=== PATIENT | male | born 1960 | race African-American/Black ===

== ENCOUNTER 2021-06-18 09:54 | Inpatient (IN) | payer OTHER, SELFPAY ==
[2021-06-18] VITALS (17 sets, daily range): BP systolic 154–192; BP diastolic 100–122; PULSE 89–118; RESP 18–23; TEMP 36.1–37.4; O2SAT 93–99; BMI 23.6
--- NOTE | ~2021-06-18 | MR_ITS ---
EXAMINATION: MR brain/brain stem wo/w con EXAM DATE: 06/20/2021 14:34 INDICATION: Encephalopathy, stroke versus seizure. TECHNIQUE: Magnetic resonance imaging (MRI) of the brain/brain stem obtained without contrast. Sagit antonia T1, axial diffusion, gradient echo (T2*), T1, T2, FLAIR sequences obtained. Patient was then inj ected with 15 cc intravenous Multihance contrast. Axial and coronal postcontrast T1 weighted sequence s obtained. Correlation is made to head CT from 06/18. FINDINGS: Punctate old left caudate head and thalamic lacunar infarctions. There are no areas of rest ricted diffusion to suggest acute infarction. There is no acute hemorrhage seen on the T2*, a hemosi bethany sensitive sequence. No intraparenchymal brain mass lesion. There is mild to moderate periventr icular and subcortical T2/FLAIR signal hyperintensity, nonspecific but probably related to small vess el ischemic disease (microangiopathy). There is mild prominence of the sulci and ventricles related to cerebral atrophy. There are no extra-axial collections. Flow voids are seen in the cerebral ar teries on the T2-weighted sequences consistent with their expected patency. The orbits are unremarka ble. Soft tissue is unremarkable. IMPRESSION: 1. No acute intracranial findings. 2. Chronic age related findings. 3. Old left lacunar infarctions. Reviewed, dictated and finalized at location B.
--- NOTE | ~2021-06-18 | XR_ITS ---
XR chest 1V portable DATE: 06/18/2021 10:16 INDICATION: Cerebrovascular accident TECHNIQUE: Portable AP chest on 06/13/2021 at 1012 hours COMPARISON: 05/07/2017 portable AP chest FINDINGS: Normal heart size. Is aortic ectasia and unfolding. No hilar or mediastinal enlargement. No pulmonary infiltrate or consolidation, pleural effusion or pulmonary vascular congestion or pneumoth orax. Diffuse idiopathic skeletal hyperostosis of the thoracic spine. IMPRESSION: No active cardiopulmonary disease Reviewed, dictated and finalized at location A.
--- NOTE | ~2021-06-18 | CT_ITS ---
EXAMINATION: CT brain wo con DATE: 06/18/2021 10:01 INDICATION: Altered mental status. Generalized weakness. Possible cerebrovascular accident. TECHNIQUE: Computed tomography (CT) of the head was performed without intravenous contrast. The mA wa s adjusted according to patient size. Iterative reconstruction technique was employed. Exam dose: 60 5.33 mGy-cm total exam DLP. COMPARISON: 05/07/2017 CT brain FINDINGS: There is a chronic lacunar infarct at the anterior limb of the left internal capsule. Left thalamic lacunar infarct. There is nonspecific diminished attenuation cerebral white matter, likely due to chronic small vessel ischemic changes. No intracranial mass lesion or hemorrhage, midline shift or mass effect effect. No subdural or epidural hematoma. No skull fracture or bone destruction. The mastoid air cells and included paranasal sinuses are normally developed and aerated. IMPRESSION: Chronic lacunar infarct of anterior limb of left internal capsule Lacunar infarct of left thalamus Diminished attenuation cerebral white matter, likely due to chronic small vessel ischemic changes of the cerebral white matter Dr. Biggs telephoned the report to the emergency room physician Dr. Lenz on 06/18/2021 at 1012 radha rs. Reviewed, dictated and finalized at Location A. Reviewed, dictated and finalized at location A. IMPRESSION: Chronic lacunar infarct of anterior limb of left internal capsule Lacunar infarct of left thalamus Diminished attenuation cerebral white matter, likely due to chronic small vesse l ischemic changes of the cerebral white matter Dr. Biggs telephoned the report to the emergency room physician Dr. Lenz on 06/18/2021 at 1012 hours.
--- NOTE | 2021-06-18 09:57 | ECG_ITS ---
Measurements Intervals [place] Rate: 113 P: 50 IL: 161 QRS: -15 QRSD: 81 T: 56 QT: 311 QTc: 427 Interpretive Statements SINUS TACHYCARDIA BASELINE ARTIFACT- I, II, AVR, AVL, AVF, V1 ABNORMAL ECG Electronically Signed On 06-18-2021 16:21:47 CDT by Mike Bahena D.O.
--- NOTE | 2021-06-18 10:06 | ED.NEUROSD ---
HPI - Neuro Symptoms/Deficit General Chief Complaint: Suspected CVA Stated Complaint: cva Time Seen by Provider: 06/18/21 10:04 History of Present Illness HPI Narrative: He was working at [employer] when someone notd him sit down in the middle [place] the [place]. He then had was they called seizure like activity, no specific description was given. When EMS arrived. He was oriented x2. He was able to follow commands. No focal deficits noted. History limited by mental status. Related Data Home Medications Medication Instructions Recorded Confirmed No Home Medications 06/18/21 06/18/21 Allergies Allergy/AdvReac Type Severity Reaction Status Date / Time No Known Allergies Allergy Verified 06/18/21 10:11 Review of Systems Review of Systems: ROS unobtainable: Yes unobtainable due to mental status PMFSH Social History Social History Smoking packs per day: 1 Smoking cigarettes per day: 20.0 Smoking status: Former smoker Tobacco type: cigarettes Smoking end date: 12/09/10 Alcohol intake: never Substance use: never Substance use type: does not use Gender identity (if verbalized by the patient): Male Spiritual care concerns: No Comments Medical history is uknown Exam Const: General: no acute distress and awake Nutritional Appearance: well nourished Other: orieted x2 HENMT: Head: normal to inspection Eyes: Pupils: Equal, round and reactive pupils present EOM: EOMs intact bilaterally Neck: Neck: normal visual inspection Resp: Effort & Inspection: normal respiratory effort Auscultation: clear to auscultation bilaterally Cardio: Rate: tachycardic Rhythm: regular rhythm GI: Inspection: normal to inspection GI Palp: No Tenderness to palpation present (GI) Skin: General skin exam: normal color Neuro: General: oriented to person, oriented to place, tone normal, moves all extremities, no focal motor deficits, CN's II-XI intact bilaterally and confusion Cranial nerves: Yes Other cranial nerve findings present (facial twitching) Cognition (Neuro): abnormal cognition Speech: normal speech Extrem: General: normal to inspection Course Vital Signs Vital signs: Vital Signs Pulse Rate 114 H 06/18/21 09:57 Respiratory Rate 22 H 06/18/21 09:57 Blood Pressure 191/120 H 06/18/21 09:57 Pulse Oximetry 97 06/18/21 09:57 Temperature 37.1 C 06/18/21 17:18 Pulse Rate 95 06/18/21 17:18 Respiratory Rate 20 06/18/21 17:18 Blood Pressure 154/101 H 06/18/21 17:18 Pulse Oximetry 96 06/18/21 17:18 MDM - Neuro Symptoms/Deficit MDM Narrative Medical decision making narrative: CT shows no hemorrhage. I will give aspirin and allow permissive hypertension, although not a clear cut CVA. Differential Diagnosis Differential diagnosis: Likely cerebrovascular accident, transient cerebral ischemia and other (seizure, syncope) Medical Records Attestation: I reviewed the patient's medical records. Lab Data Attestation: I reviewed the patient's lab results. Result diagrams: 06/18/21 10:14 06/18/21 10:14 Labs: Lab Results 06/18/21 06/18/21 06/18/21 Range/Units 10:03 10:14 10:14 WBC 10.1 H (4.5-10.0) K/mm3 RBC 4.66 (4.6-6.20) M/mm3 Hgb 14.5 (14.0-18.0) g/dL Hct 44.9 (42.0-52.0) % MCV 96.4 (80-100) fl MCH 31.1 (26-34) pg MCHC 32.3 (32-36) g/dl RDW 15.9 H (11.5-14.5) % Plt Count 107 L (150-375) k/mm3 MPV 10.5 H (7.4-10.4) fl Immature Gran % (Auto) 1.1 H (0-0.5) % Neut % (Auto) 77.5 H (45.5-73.1) % Lymph % (Auto) 7.8 L (18.3-44.2) % Cotton % (Auto) 11.9 H (2.6-8.5) % Eos % (Auto) 0.8 (0-4.4) % Baso % (Auto) 0.9 (0.2-1.2) % Lymph # (Auto) 0.78 L (0.9-3.2) K/mm3 Cotton # (Auto) 1.2 H (0.1-0.6) K/mm3 Eos # (Auto) 0.1 (0-0.3) K/mm3 Baso # (Auto) 0.1 (0.0-0.1) K/mm3 Abs Immat Gran (auto) 0.11 H (0.00-0.031) K/mm3 Absolute Neuts (auto) 7.8 H (1.3-6.7)
[2021-06-18 10:14] LABS: Glucose Point of Care 186 mg/dl (65-105)
[2021-06-18 10:42] LABS: Basophils Absolute Auto 0.1 K/mm3 (0.0-0.1); Basophils Percent Auto 0.9 % (0.2-1.2); Eosinophils Absolute Auto 0.1 K/mm3 (0-0.3); Eosinophils Percent Auto 0.8 % (0-4.4); Hematocrit 44.9 % (42.0-52.0); Hemoglobin 14.5 g/dL (14.0-18.0); Immature Granulocyte Absolute 0.11 K/mm3 (0.00-0.031); Immature Granulocyte Percent A 1.1 % (0-0.5); Lymphocytes Absolute Auto 0.78 K/mm3 (0.9-3.2); Lymphocytes Percent Auto 7.8 % (18.3-44.2); Mean Corpuscular HGB Conc 32.3 g/dl (32-36); Mean Corpuscular Hemoglobin 31.1 pg (26-34); Mean Corpuscular Volume 96.4 fl (80-100); Mean Platelet Volume 10.5 fl (7.4-10.4); Monocytes Absolute Auto 1.2 K/mm3 (0.1-0.6); Monocytes Percent Auto 11.9 % (2.6-8.5); Neutrophils Absolute Auto 7.8 K/mm3 (1.3-6.7); Neutrophils Percent Auto 77.5 % (45.5-73.1); Nucleated Red Blood Cells Perc 0.2 % (0.0-0.2); Platelet Count Result 107 k/mm3 (150-375); Red Blood Count 4.66 M/mm3 (4.6-6.20); Red Cell Distribution Width 15.9 % (11.5-14.5); White Blood Count 10.1 K/mm3 (4.5-10.0)
[2021-06-18] MEDS: ASPIRIN 81 MG CHEWABLE TABLET 324 MG PO (10:45)
--- NOTE | 2021-06-18 10:50 | PC.NURSE ---
Spoke with patients Jessica at [phone], updated patient is in ED and stable. Jessica states she will be coming to ED soon to see her .
[2021-06-18 10:53] LABS: Anion Gap 21 mmol/L (8-16); Blood Urea Nitrogen 14 mg/dL (9-20); Calcium 9.5 mg/dL (8.4-10.2); Carbon Dioxide 18 mmol/L (22-30); Chloride 99 mmol/L (98-107); Estimated CRCL calculation 78 ml/min; Estimated Glomerular Filt Rate > 60; Glucose 156 mg/dL (65-110); Potassium 4.4 mmol/L (3.4-5.0); Sodium 138 mmol/L (137-145)
[2021-06-18 10:57] LABS: Partial Thromboplastin Time 24.8 SECONDS (22.3-36.8); Prothrombin Time 13.1 Seconds (11.1-14.7)
[2021-06-18] MEDS: levETIRAcetam 1000MG/NACL100ML 1,000 MG/100 ML BAG 400 MG IVPB (11:10)
--- NOTE | 2021-06-18 14:34 | ADMGEN ---
This patient, Luiz Flores, was admitted to IMU Room 202-01. Patient/family oriented to hospital policies and general routines including ID bracelet, bed and alarms, visiting hours, pain management, procedures, bathroom and other care routines, personal items, smoking policy, room service/diet, and visiting hours. Information on how to activate the Rapid Response Team has been discussed. Patient/Family are encouraged to report perceived risks to care and to ask questions if they do not understand what they are told or what they should do.
[2021-06-18 14:44] LABS: Troponin I 0.135 ng/mL (0.000-0.034)
[2021-06-18 16:51] LABS: Glucose Point of Care 99 mg/dl (65-105)
[2021-06-18 16:55] LABS: Troponin I 0.138 ng/mL (0.000-0.034)
--- NOTE | 2021-06-18 20:02 | PM.IMHP ---
H&P: HPI History of Present Illness Date/Time: 06/18/21 20:02 Chief Complaint: seizure-like activity Narrative: 61-year-old male with past medical history of prior head traumas, alcoholism and essential hypertension who presented to the ER from his place of employment via EMS after he had witnessed seizure-like activity. Information comes from the patient who is a poor historian and his . The patient and his report that the patient had had prior head trauma as a young man. Then several months ago he had what sounds like either syncopal episode or seizure-like activity and fell striking his head. He injured his head and had bleeding from his ears and was transferred to [facility]. He did not have any surgical interventions but in the patient was told that if he were to fall and strike his head again that he could cause significant damage. The patient's reports that the patient has not been feeling well for the last week. He has a had a dry cough. He has not had any measured fevers but reports that he feels quite hot. He was already having a cough when he went to a family gathering. At the family gathering there was a family member who was also having symptoms and later tested positive for COVID. The patient's reports that since patient has not been feeling as well the patient did not drink his usual amount of alcohol yesterday. She reports that he usually drinks 4- 1/5 bottles of Rum a week. The patient had denied any cough congestion or shortness of breath but his contradicts his report. The patient also denied any urinary symptoms. His states that the patient is having frequent urinary incontinence and she is concerned about his prostate since his father of prostate cancer. she states that when he was evaluated at [facility] he was noted to be significantly hypertensive. He was discharged home on antihypertensive medications but the patient refuses to take the antihypertensives. She is unaware of him having a history of a prior stroke but CT scan performed in the ER did demonstrate chronic left-sided lacunar infarct of the anterior limb of the internal capsule. She reports that the patient has a motions are always kind of flat unless he is intoxicated. Review of Systems Review of Systems: Narrative: 12 systems were reviewed with pertinent positives and negatives per HPI. Except as documented in the HPI, all other systems were reviewed and are negative. [facility] Past Medical History Medical History (Updated 06/18/21 @ 23:17 by Rere Grajeda DO) Alcoholism CVA (cerebral vascular accident) chronic left internal capsule lacunar infact noted on CT 06/18/21 Essential hypertension Head trauma Surgical History Surgical History (Updated 06/18/21 @ 22:51 by Rere Grajeda DO) No significant past surgical history Family History Family History (Updated 06/18/21 @ 22:52 by Rere Grajeda DO) Father Malignant neoplasm of prostate Mother Breast cancer CHF (congestive heart failure) Social History Social History (Updated 06/18/21 @ 22:55 by Rere Grajeda DO) Social History: He does not have a primary care provider. His is his surrogate decision maker. Smoking packs per day: 1 Smoking cigarettes per day: 20.0 Years smoked: 35 Smoking pack-years: 35.00 Smoking status: Former smoker Tobacco type: cigarettes Smoking end date: 12/09/10 Alcohol intake: current Alcohol use details: He drinks 4--1/5 bottles of rum a week. Substance use: never Substance use type: does not use Additional living arrangements comments: He lives with his of 20 years. He has 1 daughter but they are estranged from each other. 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
[2021-06-18 21:24] LABS: Lactic Acid Reflex 1.3 mmol/L (0.7-2.1)
[2021-06-18 21:25] LABS: Creatine Kinase 1117 U/L (55-170)
[2021-06-18] MEDS: amLODIPine BESYLATE 5 MG TABLET PO (21:37)
[2021-06-18] MEDS: SODIUM CHLORIDE 0.9% IV 1,000 ML 100 ML IV CONT (21:38)
[2021-06-19] VITALS (14 sets, daily range): BP systolic 161–175; BP diastolic 94–114; PULSE 76–122; RESP 18–22; TEMP 36.6–39.6; O2SAT 97–98
[2021-06-19] MEDS: THIAMINE HCL 200 MG/2 ML VIAL 100 MG IV PUSH (00:13)
[2021-06-19] MEDS: TAMSULOSIN HCL 0.4 MG CAPSULE PO ×2 (00:17→09:25)
[2021-06-19] MEDS: chlordiazePOXIDE (*CRX) 5 MG CAPSULE PO ×4 (00:18→17:27)
[2021-06-19 05:43] LABS: Hematocrit 41.2 % (42.0-52.0); Hemoglobin 13.7 g/dL (14.0-18.0); Immature Platelet Fraction Pct 4.5 % (0.9-11.2); Mean Corpuscular HGB Conc 33.3 g/dl (32-36); Mean Corpuscular Hemoglobin 30.6 pg (26-34); Mean Corpuscular Volume 92.2 fl (80-100); Mean Platelet Volume 10.9 fl (7.4-10.4); Platelet Count Result 88 k/mm3 (150-375); Red Blood Count 4.47 M/mm3 (4.6-6.20); Red Cell Distribution Width 15.2 % (11.5-14.5); White Blood Count 6.8 K/mm3 (4.5-10.0)
[2021-06-19 05:52] LABS: Alanine Aminotransferase 38 U/L (4-50); Albumin Level 4.1 g/dL (3.5-5.1); Alkaline Phosphatase 45 U/L (38-126); Anion Gap 9 mmol/L (8-16); Aspartate Amino Transferase 148 U/L (17-59); Bilirubin,Total 0.7 mg/dL (0.2-1.3); Blood Urea Nitrogen 12 mg/dL (9-20); Calcium 8.7 mg/dL (8.4-10.2); Carbon Dioxide 24 mmol/L (22-30); Chloride 103 mmol/L (98-107); Creatine Kinase 1274 U/L (55-170); Estimated CRCL calculation 87 ml/min; Estimated Glomerular Filt Rate > 60; Glucose 85 mg/dL (65-110); Potassium 3.6 mmol/L (3.4-5.0); Sodium 136 mmol/L (137-145)
--- NOTE | 2021-06-19 06:06 | PC.NURSE ---
Patient refuses to be swabbed for COVID, benefits vs risks explained. Pt informed he would be unable to come off of isolation. Pt verbalizes understanding.
[2021-06-19 06:08] LABS: Troponin I 0.118 ng/mL (0.000-0.034)
[2021-06-19] MEDS: SODIUM CHLORIDE 0.9% IV 1,000 ML 100 ML IV CONT ×2 (09:25→19:25)
[2021-06-19] MEDS: amLODIPine BESYLATE 5 MG TABLET PO (09:25)
[2021-06-19] MEDS: THIAMINE HCL 100 MG TABLET PO (09:25)
--- NOTE | 2021-06-19 10:39 | WPDNEURCNPN ---
Assessment and Plan Additional Plan treatment as planned Consult date: 06/19/21 Time Seen: 10:45 HPI: Luiz Flores is a 61 year old male 61 years old admitted to the hospital for the seizure-like activity in addition to history of previous head trauma , alcoholism, and hypertension he was noted to have seizure-like activity, mentioned by the family that he has had head trauma in the past as a young person and several months ago he had an syncopal episode with seizure-like activity ,he fell at that particular time, was noted to have bleeding from his ears and was transferred to [facility] though no surgical intervention was carried out ,patient noted to have a dry cough by the family ,he attended a family gathering where was exposed to person with the positive COVID, patient usually drinks 4-1/5 bottle of rum a week patient has refused to take antihypertensive treatment Review of Systems Review of Systems: All systems reviewed & are unremarkable except as noted in HPI and below PMFSH Past Medical History Medical History Alcoholism CVA (cerebral vascular accident) chronic left internal capsule lacunar infact noted on CT 06/18/21 Essential hypertension Head trauma Surgical History Surgical History No significant past surgical history Family History Family History Father Malignant neoplasm of prostate Mother Breast cancer CHF (congestive heart failure) Social History Social History Social History: He does not have a primary care provider. His is his surrogate decision maker. Smoking packs per day: 1 Smoking cigarettes per day: 20.0 Years smoked: 35 Smoking pack-years: 35.00 Smoking status: Former smoker Tobacco type: cigarettes Smoking end date: 12/09/10 Alcohol intake: current Alcohol use details: He drinks 4--1/5 bottles of rum a week. Substance use: never Substance use type: does not use Additional living arrangements comments: He lives with his of 20 years. He has 1 daughter but they are estranged from each other. 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 [facility] Gender identity (if verbalized by the patient): Male Spiritual care concerns: No Meds Home Medications and Allergies Home Medications Medication Instructions Recorded Confirmed Type No Home Medications 06/18/21 06/18/21 History Allergies Allergy/AdvReac Type Severity Reaction Status Date / Time No Known Allergies Allergy Verified 06/18/21 10:11 Vital Signs Vital Signs - 24 hr 06/18/21 10:46 06/18/21 11:11 06/18/21 12:16 Temperature Pulse Rate 118 H 112 H 106 H Respiratory Rate 21 H 22 H 23 H Blood Pressure 180/111 H 173/114 H 170/119 H Pulse Oximetry 93 94 96 06/18/21 13:01 06/18/21 13:15 06/18/21 13:16 Temperature Pulse Rate 100 99 100 Respiratory Rate 20 20 21 H Blood Pressure 155/105 H 169/108 H Pulse Oximetry 96 96 96 06/18/21 13:32 06/18/21 14:20 06/18/21 16:00 Temperature 36.3 C L Pulse Rate 92 100 95 Respiratory Rate 20 20 Blood Pressure 173/101 H Pulse Oximetry 95 97 06/18/21 17:18 06/18/21 18:00 06/18/21 19:41 Temperature 37.1 C 36.1 C L Pulse Rate 95 95 90 Respiratory Rate 20 18 Blood Pressure 154/101 H 161/100 H Pulse Oximetry 96 97 06/18/21 20:00 06/18/21 22:00 06/18/21 23:51 Temperature 36.7 C Pulse Rate 100 89 90 Respiratory Rate 18 Blood Pressure 168/108 H Pulse Oximetry 99 06/19/21 00:00 06/19/21 02:00 06/19/21 04:00 Temperature 36.6 C Pulse Rate 91 80 77 Respiratory Rate 20 Blood Pressure 161/98 H Pulse Oximetry 97 06/19/21 06:00 Temperature Pulse Rate 92 Respiratory Rate Blood Pressure Pulse Oximetry Exam Narrative: E
[2021-06-19 11:31] LABS: Prostate Specific Antigen 1.5 ng/mL (< OR = 4.0)
[2021-06-19 11:53] LABS: Add Urine Microscopic? YES; Appearance Urine Clear (Clear); Bilirubin Urine Negative (Negative); Blood Urine 1+ (Negative); Color Urine Yellow (Yellow); Glucose Urine UA Negative (Negative); Ketones Urine 1+ mg/dL (Negative); Leukocyte Esterase Ur Negative LEU/UL (Negative); Mucus Urine Rare /lpf; Nitrate Urine Negative (Negative); Protein Urine 1+ mg/dL (Negative); RBC Urine 0-2 /hpf (0-2); Specific Grav Ur 1.021 (1.001-1.035); Squamous Epithelial Cell Urine Rare /hpf (Few); WBC Urine 0-3 /hpf
[2021-06-19 11:58] LABS: Troponin I 0.103 ng/mL (0.000-0.034)
[2021-06-19 12:14] LABS: Folic Acid 7.4 ng/mL (2.76->20)
--- NOTE | 2021-06-19 17:26 | PM.IMPN ---
Progress Note: A&P Assessment and Plan (1) Witnessed seizure-like activity: Code(s): R56.9 - Unspecified convulsions Status: Acute Assessment and Plan: Given the patient's history of prior head trauma alcohol abuse he likely has a lowered seizure threshold. His seizures likely due to due to alcohol withdrawal. neurology has been consulted and MRI has been ordered. MRI was ordered as there was some concern for possible CVA according to ER staff. However get information from the makes me more suspicious for alcohol in less likely for acute CVA. Patient has been placed on seizure precautions. Low-dose scheduled Librium has been ordered. P.r.n. Ativan for CIWA scores greater than 8. 06/19/21 17:26 patient is a 61-year-old male with history of brain trauma was sent to emergency depart after was found to have his like activity at his workplace any EMS and brought to the emergency depart, patient also has history alcohol abuse any drinks 4 1/5 bottles of rum everywhere however he has not been able to drink alcohol as he been sick,there is also concern patient has been exposed to COVID-19 in the recent family gathering patient is isolated and tested, currently patient states is feeling better, he has not had any seizure while in the hospital emergency depart patient was given Keppra, patient seen by Neurology patient will have MRI of the brain to further evaluate as well as EEG. patient remains clinically stable continue to monitor. (2) Essential hypertension: Code(s): I10 - Essential (primary) hypertension Status: Acute Assessment and Plan: Will start the patient on Norvasc daily. (3) Alcoholism: Code(s): F10.20 - Alcohol dependence, uncomplicated Status: Acute Assessment and Plan: Will provide thiamine supplementation. CIWA scores q.4 hours with low-dose scheduled Librium and p.r.n. Ativan. (4) Urinary incontinence: Code(s): R32 - Unspecified urinary incontinence Status: Acute Assessment and Plan: Likely due to BPH and or alcohol use. Will ask nursing staff to check postvoid residual. given the patient's family history of prostate cancer will check a PSA. Will initiate therapy with Flomax daily. (5) Elevated troponin: Code(s): R77.8 - Other specified abnormalities of plasma proteins Status: Acute Assessment and Plan: the patient denies chest pain or cardiac symptoms. His EKG is unremarkable. the patient does have an elevated CK level lies back some of his troponin elevation could be due to his seizure And mild rhabdomyolysis. A component of it could also be due to his uncontrolled hypertension. he received full-dose aspirin therapy. Will start the patient on 81 mg aspirin daily. will repeat troponin and CK with a.m. labs. patient has been placed on IV fluids. (6) Exposure to COVID-19 virus: Code(s): Z20.822 - Contact with and (suspected) exposure to COVID-19 Status: Acute Assessment and Plan: the patient has had a dry cough with what sounds like subjective fevers. He has had recent COVID exposure. Will check COVID-[address] patient on isolation. Subjective Date/time seen: 06/19/21 17:26 patient is a 61-year-old male with history of brain trauma was sent to emergency depart after was found to have his like activity at his workplace any EMS and brought to the emergency depart, patient also has history alcohol abuse any drinks 4 1/5 bottles of rum everywhere however he has not been able to drink alcohol as he been sick,there is also concern patient has been exposed to COVID-19 in the recent family gathering patient is isolated and tested, currently patient states is feeling better, he has not had any seizure while in the hospital emergency depart patient was given Keppra, patient seen by Neurology patient will have MRI of the brain to further evaluate as w
[2021-06-19] MEDS: ACETAMINOPHEN 325 MG TABLET 650 MG PO (18:00)
[2021-06-20] VITALS (12 sets, daily range): BP systolic 158–176; BP diastolic 97–112; PULSE 77–96; RESP 16–20; TEMP 36.6–37.6; O2SAT 97–99
[2021-06-20] MEDS: chlordiazePOXIDE (*CRX) 5 MG CAPSULE PO ×5 (00:11→23:12)
[2021-06-20 05:00] LABS: Hemoglobin 14.3 g/dL (14.0-18.0); Immature Platelet Fraction Pct 4.8 % (0.9-11.2); Mean Corpuscular HGB Conc 32.5 g/dl (32-36); Mean Corpuscular Hemoglobin 31.2 pg (26-34); Mean Corpuscular Volume 95.9 fl (80-100); Mean Platelet Volume 10.8 fl (7.4-10.4); Platelet Count Result 86 k/mm3 (150-375); Red Blood Count 4.59 M/mm3 (4.6-6.20); Red Cell Distribution Width 15.4 % (11.5-14.5); White Blood Count 7.6 K/mm3 (4.5-10.0)
[2021-06-20 05:36] LABS: Alanine Aminotransferase 132 U/L (4-50); Alkaline Phosphatase 45 U/L (38-126); Anion Gap 12 mmol/L (8-16); Aspartate Amino Transferase 544 U/L (17-59); Bilirubin,Total 0.8 mg/dL (0.2-1.3); Blood Urea Nitrogen 12 mg/dL (9-20); Calcium 8.7 mg/dL (8.4-10.2); Carbon Dioxide 23 mmol/L (22-30); Chloride 100 mmol/L (98-107); Creatine Kinase 1480 U/L (55-170); Estimated CRCL calculation 87 ml/min; Estimated Glomerular Filt Rate > 60; Glucose 73 mg/dL (65-110); Magnesium 1.9 mg/dL (1.6-2.3); Sodium 135 mmol/L (137-145)
--- NOTE | 2021-06-20 09:15 | PM.IMPN ---
Progress Note: A&P Assessment and Plan (1) Witnessed seizure-like activity: Code(s): R56.9 - Unspecified convulsions Status: Acute Assessment and Plan: Given the patient's history of prior head trauma alcohol abuse he likely has a lowered seizure threshold. His seizures likely due to due to alcohol withdrawal. neurology has been consulted and MRI has been ordered. MRI was ordered as there was some concern for possible CVA according to ER staff. However get information from the makes me more suspicious for alcohol in less likely for acute CVA. Patient has been placed on seizure precautions. Low-dose scheduled Librium has been ordered. P.r.n. Ativan for CIWA scores greater than 8. 06/19/21 17:26 patient is a 61-year-old male with history of brain trauma was sent to emergency depart after was found to have his like activity at his workplace any EMS and brought to the emergency depart, patient also has history alcohol abuse any drinks 4 1/5 bottles of rum everywhere however he has not been able to drink alcohol as he been sick,there is also concern patient has been exposed to COVID-19 in the recent family gathering patient is isolated and tested, currently patient states is feeling better, he has not had any seizure while in the hospital emergency depart patient was given Keppra, patient seen by Neurology patient will have MRI of the brain to further evaluate as well as EEG. patient remains clinically stable continue to monitor. 06/20/2021 History of brain trauma with seizure-like activity at work place history of alcohol abuse. Exposure to COVID comes with fever COVID test pending remains in room air without any hypoxia. No further seizure while in the hospital patient was given Keppra neurology following MRI brain and EEG pending (2) Essential hypertension: Code(s): I10 - Essential (primary) hypertension Status: Acute Assessment and Plan: on Norvasc will increase it to twice a day Since eating okay will also stop his IV fluids (3) Alcoholism: Code(s): F10.20 - Alcohol dependence, uncomplicated Status: Acute Assessment and Plan: Will provide thiamine supplementation. CIWA scores q.4 hours with low-dose scheduled Librium and p.r.n. Ativan. (4) Urinary incontinence: Code(s): R32 - Unspecified urinary incontinence Status: Acute Assessment and Plan: Likely due to BPH and or alcohol use. Will ask nursing staff to check postvoid residual. given the patient's family history of prostate cancer will check a PSA. Will initiate therapy with Flomax daily. (5) Elevated troponin: Code(s): R77.8 - Other specified abnormalities of plasma proteins Status: Acute Assessment and Plan: the patient denies chest pain or cardiac symptoms. His EKG is unremarkable. the patient does have an elevated CK level lies back some of his troponin elevation could be due to his seizure And mild rhabdomyolysis. A component of it could also be due to his uncontrolled hypertension. he received full-dose aspirin therapy. Will start the patient on 81 mg aspirin daily. will repeat troponin and CK with a.m. labs. patient has been placed on IV fluids. Will check echo (6) Exposure to COVID-19 virus: Code(s): Z20.822 - Contact with and (suspected) exposure to COVID-19 Status: Acute Assessment and Plan: the patient has had a dry cough with what sounds like subjective fevers. He has had recent COVID exposure. Will check COVID-[address] patient on isolation. (7) Thrombocytopenia: Code(s): D69.6 - Thrombocytopenia, unspecified Status: Acute Assessment and Plan: likely from viral infection/alcohol use (8) Elevated liver enzymes: Code(s): R74.8 - Abnormal levels of other serum enzymes Status: Acute Assessment and Plan: worsened will continue to monitor
[2021-06-20] MEDS: THIAMINE HCL 100 MG TABLET PO (09:50)
[2021-06-20] MEDS: SODIUM CHLORIDE 0.9% IV 1,000 ML 100 ML IV CONT (09:50)
[2021-06-20] MEDS: TAMSULOSIN HCL 0.4 MG CAPSULE PO (09:50)
[2021-06-20] MEDS: amLODIPine BESYLATE 5 MG TABLET PO ×2 (09:50→19:56)
[2021-06-20 15:39] LABS: SARS-CoV-2 RNA PCR Positive
[2021-06-21] VITALS (9 sets, daily range): BP systolic 160–182; BP diastolic 97–117; PULSE 73–102; RESP 16–18; TEMP 36.6–37.3; O2SAT 96–99
[2021-06-21 05:09] LABS: Hematocrit 45.5 % (42.0-52.0); Mean Corpuscular Hemoglobin 31.1 pg (26-34); Mean Corpuscular Volume 94.4 fl (80-100); Mean Platelet Volume 10.3 fl (7.4-10.4); Platelet Count Result 87 k/mm3 (150-375); Red Blood Count 4.82 M/mm3 (4.6-6.20); White Blood Count 6.6 K/mm3 (4.5-10.0)
[2021-06-21] MEDS: chlordiazePOXIDE (*CRX) 5 MG CAPSULE PO ×2 (05:16→12:47)
[2021-06-21 05:30] LABS: Alanine Aminotransferase 93 U/L (4-50); Albumin Level 3.9 g/dL (3.5-5.1); Alkaline Phosphatase 46 U/L (38-126); Anion Gap 15 mmol/L (8-16); Aspartate Amino Transferase 227 U/L (17-59); Bilirubin,Total 0.6 mg/dL (0.2-1.3); Blood Urea Nitrogen 12 mg/dL (9-20); Calcium 8.8 mg/dL (8.4-10.2); Carbon Dioxide 20 mmol/L (22-30); Chloride 99 mmol/L (98-107); Creatine Kinase 1389 U/L (55-170); Estimated CRCL calculation 97 ml/min; Estimated Glomerular Filt Rate > 60; Glucose 70 mg/dL (65-110); Magnesium 1.9 mg/dL (1.6-2.3); Potassium 3.4 mmol/L (3.4-5.0); Sodium 134 mmol/L (137-145)
[2021-06-21] MEDS: THIAMINE HCL 100 MG TABLET PO (10:06)
[2021-06-21] MEDS: TAMSULOSIN HCL 0.4 MG CAPSULE PO (10:06)
[2021-06-21] MEDS: amLODIPine BESYLATE 5 MG TABLET PO (10:06)
--- NOTE | 2021-06-21 14:14 | PM.DS ---
DS: Admitting Diagnosis Admitting Diagnosis confusion fall DS: Discharge Diagnosis Discharge Diagnosis (1) Elevated liver enzymes: Code(s): R74.8 - Abnormal levels of other serum enzymes Status: Acute (2) Thrombocytopenia: Code(s): D69.6 - Thrombocytopenia, unspecified Status: Acute (3) Acute COVID-19: Code(s): U07.1 - COVID-19 Status: Acute (4) Essential hypertension: Code(s): I10 - Essential (primary) hypertension Status: Acute (5) Witnessed seizure-like activity: Code(s): R56.9 - Unspecified convulsions Status: Acute (6) Acute encephalopathy: Code(s): G93.40 - Encephalopathy, unspecified Status: Acute (7) Alcoholism: Code(s): F10.20 - Alcohol dependence, uncomplicated Status: Acute (8) Exposure to COVID-19 virus: Code(s): Z20.822 - Contact with and (suspected) exposure to COVID-19 Status: Acute (9) Elevated troponin: Code(s): R77.8 - Other specified abnormalities of plasma proteins Status: Acute DS: Summary Hospital Course Hospital Course: 61-year-old male with past medical history of prior head traumas, alcoholism and essential hypertension not on any treatment who presented to the ER from his place of employment via EMS after he had witnessed seizure-like activity. Information comes from the patient who is a poor historian and his . The patient and his report that the patient had had prior head trauma as a young man. Then several months ago he had what sounds like either syncopal episode or seizure-like activity and fell striking his head. He injured his head and had bleeding from his ears and was transferred to [facility]. He did not have any surgical interventions but in the patient was told that if he were to fall and strike his head again that he could cause significant damage. The patient's reports that the patient has not been feeling well for the last week. He has a had a dry cough. He has not had any measured fevers but reports that he feels quite hot. He was already having a cough when he went to a family gathering. At the family gathering there was a family member who was also having symptoms and later tested positive for COVID. The patient's reports that since patient has not been feeling as well the patient did not drink his usual amount of alcohol yesterday. She reports that he usually drinks 4- 1/5 bottles of Rum a week. The patient had denied any cough congestion or shortness of breath but his contradicts his report. The patient also denied any urinary symptoms. His states that the patient is having frequent urinary incontinence and she is concerned about his prostate since his father of prostate cancer. she states that when he was evaluated at [facility] he was noted to be significantly hypertensive. He was discharged home on antihypertensive medications but the patient refuses to take the antihypertensives. She is unaware of him having a history of a prior stroke but CT scan performed in the ER did demonstrate chronic left-sided lacunar infarct of the anterior limb of the internal capsule. She reports that the patient has a motions are always kind of flat unless he is intoxicated. he was admitted to the hospital for further evaluation. He was febrile on admission and was put on COVID precaution. his COVID test did come back positive. He however did not require any oxygen today and qualified to get any Decadron/ remdesivir. a chest x-ray was normal without any infiltrate. He denied any shortness of breath or chest pain or cough. He was treated symptomatically with Tylenol as needed. Fever improved. He was evaluated by neurology and determined his fault related to his underlying infection it was all also evaluated for his abnormal head CT which showed chronic lacunar infarct of anterior limb of left internal capsule and Allen infarct of the left
--- NOTE | 2021-06-21 15:53 | PC.NURSE ---
Went over Discharge paperwork with patient, took out IV's, and took off telemonitor at 1535 on 06/21/21. Waiting on family to pick pt up.
== END 2021-06-21 16:10 | disposition home or self-care (01) | DRG 100 ==
LOC: ANHED 11:43 → ANHIMU 18:54
PROVIDERS: Family Medicine; Internal Medicine; Admitting Provider Internal Medicine; Emergency Provider Emergency Medicine; Visit Provider Internal Medicine
DX: R56.9 Unspecified convulsions (principal); U07.1 COVID-19; Z87.891 Personal history of nicotine dependence; I10 Essential (primary) hypertension; F10.20 Alcohol dependence, uncomplicated; Y90.9 Presence of alcohol in blood, level not specified; R32 Unspecified urinary incontinence; Z80.42 Family history of malignant neoplasm of prostate; R77.8 Other specified abnormalities of plasma proteins; R50.9 Fever, unspecified; Z86.73 Personal history of transient ischemic attack (TIA), and cerebral infarction without residual deficits; D69.59 Other secondary thrombocytopenia; R74.8 Abnormal levels of other serum enzymes
CPT/HCPCS: 36415; 70450; 70553; 71045; 80048; 80053; 81001; 82550; 82607; 82746; 82948; 83605; 83735; 84153; 84484; 85025; 85027; 85055; 85610; 85730; 93005; 96374; 99285; A9270; A9577; C9803; G0103; J1953; J3411; J7030; U0003; U0005

== ENCOUNTER 2025-11-16 16:36 | Emergency (ER) | payer SELFPAY ==
--- NOTE | ~2025-11-16 | XR_ITS ---
XR elbow LT min 3V 11/16/2025 17:13 INDICATION: Left elbow pain PROCEDURE: 3 views left elbow COMPARISON: No prior studies for comparison. FINDINGS: Fracture, dislocation or subluxation is not identified. The soft tissues appear within normal limits. No foreign bodies are identified. IMPRESSION: 1: NO ACUTE BONE OR JOINT ABNORMALITY IDENTIFIED. Reviewed, dictated and finalized at location O. GE HELPER
--- NOTE | ~2025-11-16 | XR_ITS ---
XR hand LT min 3V 11/16/2025 17:13 Indication: Hand injury Procedure: 3 views left hand Comparison: No prior studies for comparison. Findings: There are soft tissue lacerations with possible small foreign bodies overlying the distal aspect of the second and third phalanges. There is ventral subluxation of the fifth digit at the metacarpophalangeal joint with fixed flexion at the PIP joint. No acute fracture identified. Impression: 1: Ventral subluxation left third digit at the MCP joint with fixed flexion at the PIP joint. No fracture identified. Reviewed, dictated and finalized at location O. HIC DESIGN MANAGER Impression: 1: Ventral subluxation left third digit at the MCP joint with fixed flexion at the PIP joint. No fracture identified.
--- NOTE | ~2025-11-16 | CT_ITS ---
EXAMINATION: CT brain wo con DATE: 11/16/2025 17:02 INDICATION: Trauma. TECHNIQUE: Computed tomography (CT) of the head was performed without intravenous contrast. The mA was adjusted according to patient size. Iterative reconstruction technique was employed. The dose-length product was 605.33 mGy-cm. COMPARISON: Head CT 06/18/2021, brain MRI 06/20/2021 FINDINGS: There are old infarcts in the left basal ganglia and left thalamus. There is chronic encephalomalacia in the anterior and anteroinferior aspects of right frontal lobe, anteroinferior aspects of left frontal and temporal lobes, and lateral aspect of left temporal lobe. There are scattered areas of low attenuation in the cerebral white matter. There is no intracranial hemorrhage, acute infarction, or abnormal intracranial mass lesion. The ventricles are normal in size. The orbits are normal. There are blowout fractures of the medial wall and floor of left orbit. The paranasal sinuses are clear. The mastoid air cells are normal. There is cerumen in the left external auditory canal. IMPRESSION: 1. 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 2. Multifocal chronic encephalomalacia in a distribution typical of traumatic brain injury. 3. Extensive nonspecific cerebral white matter disease, which likely represents chronic small vessel ischemic disease. Reviewed, dictated and finalized at location E. K STITCHER IMPRESSION: 1. 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 2. Multifocal chronic encephalomalacia in a distribution typical of traumatic b rain injury. 3. Extensive nonspecific cerebral white matter disease, which likely represents chronic small vessel ischemic disease.
--- NOTE | ~2025-11-16 | CT_ITS ---
EXAMINATION: CT cervical spine wo con DATE: 11/16/2025 17:02 INDICATION: Trauma. Neck pain. TECHNIQUE: Computed tomography (CT) of the cervical spine was performed without intravenous contrast. The dose-length product was 337 mGy-cm. Automated exposure control and iterative reconstruction technique were employed. COMPARISON: CT dated 05/07/2017 FINDINGS: No significant paraspinal soft tissue abnormality. Lung apices are normal. Vertebral body heights are maintained. There is disc narrowing at C5-6, C6-7 and C7-T1. No evidence for perched facet. Craniovertebral junction is normal. Odontoid process is normal. There is multilevel uncinate and facet degenerative change. Left mastoid air cells are pneumatized. There is carotid atherosclerosis. IMPRESSION: 1. No acute abnormality of the cervical spine. Reviewed, dictated and finalized at location O. ASSEMBLER
[2025-11-16 16:36] VITALS: BP 137/95; PULSE 90; RESP 14; TEMP 37.1; O2SAT 98
--- NOTE | 2025-11-16 17:00 | ED_ITS ---
HPI - General Adult General Chief complaint: Fall <Larry Chun MD - Last Filed: 11/17/25 18:11> Stated complaint: fall <Larry Chun MD - Last Filed: 11/17/25 18:11> History of Present Illness HPI narrative: [age] old male presents emergency department for evaluation after having a ground level fall. Patient was intoxicated after drinking rum. Patient states he landed on a rock and injured his left hand. Patient has abrasion to his left elbow. Patient states he did strike his head and is unsure if he had any loss of consciousness. Patient states he does drink almost every day. <Larry Chun MD - Last Filed: 11/17/25 18:11> Related Data Home medications: Home Medications ?Medication ?Instructions ?Recorded ?Confirmed ?Last Taken ?Type metoprolol tartrate 25 mg tablet 25 mg PO DAILY 08/02/21 Unknown History <Larry Chun MD - Last Filed: 11/17/25 18:11> Allergies/adverse reactions: Allergies Allergy/AdvReac Type Severity Reaction Status Date / Time No Known Allergies Allergy Verified 08/02/21 13:39 <Larry Chun MD - Last Filed: 11/17/25 18:11> Review of Systems 2 Review of Systems: All systems reviewed & are unremarkable except as noted in HPI and below <Larry Chun MD - Last Filed: 11/17/25 18:11> [facility] Past Medical History Medical History: Medical History Alcoholism CVA (cerebral vascular accident) chronic left internal capsule lacunar infact noted on CT 06/18/21 Essential hypertension Head trauma <Larry Chun MD - Last Filed: 11/17/25 18:11> Surgical History Surgical History: Surgical History No significant past surgical history <Larry Chun MD - Last Filed: 11/17/25 18:11> Family History Family History: Family History Father Malignant neoplasm of prostate Mother Breast cancer CHF (congestive heart failure) <Larry Chun MD - Last Filed: 11/17/25 18:11> Social History Social History: Social History Social History: He does not have a primary care provider. His is his surrogate decision maker. Smoking packs per day: 1 Smoking cigarettes per day: 20.0 Years smoked: 35 Smoking pack-years: 35.00 Smoking status: Former smoker Tobacco type: cigarettes Smoking end date: 12/09/10 Alcohol intake: former Alcohol use details: He drinks 4--1/5 bottles of rum a week. Substance use: never Substance use type: does not use Additional living arrangements comments: He lives with his of 20 years. He has 1 daughter but they are estranged from each other. 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 HEAD: normocephalic, atraumatic. EYES: PERRLA/EOMI, conjunctivae clear. NOSE: Normal no drainage EARS:TMS clear with good light reflex. THROAT: Pharynx clear, no exudate. NECK: Supple. No adenopathy, no masses. RESPIRATORY: Airway patent, respirations nonlabored. Clear to auscultation bilaterally, no rales, rhonchi, wheezing. CARDIOVASCULAR: Regular rate and rhythm without murmurs rubs or gallops. ABDOMINAL: Soft, nontender, nondistended, normal bowel sounds MUSCULOSKELETAL: Moves all extremities. Strength/ROM intact, No edema, No calf tenderness. NEURO: Alert. Cranial nerves II through XII intact. Good gait. Good coordination SKIN: Lacerations to dorsal aspect of 3rd and 4th finger, abrasion to left elbow <Larry Chun MD - Last Filed: 11/17/25 18:11> Course Vital Signs Vital signs: Vital Signs Temperature 98.8 F 11/16/25 16:36 Pulse Rate 90 11/16/25 16:36 Respiratory Rate 14 11/16/25 16:36 Blood Pressure 137/95 H 11/16/25 16:36 Pulse Oximetry 98 11/16/25 16:36 Oxygen Delivery Room Air 11/16/25 16:36 Temperature 98.8 F 11/16/25 16:36 Pulse Rate 95 11/16/25 21:00 Respiratory Rate 16 11/16/25 21:00 Blood Pressure 124/90 11/16/25 21:00 Pulse Oximetry 97 11/16/25 21:00 Oxygen Delivery Room Air 11/16/25 16:36 <Larry Chun MD - Last Filed: 11/17/25 18:11> Vital Signs Temperature 98.8 F 11/16/25 16:36 Pulse Rate 90 11/16/25 16:36 Respiratory Rate 14 11/16/25 16:36 Blood Pressure 137/95 H 11/16/25 16:36 Pulse Oximetry 98 11/16/25 16:36 Oxygen Delivery Room Air 11/16/25 16:36 Temperature 98.8 F 11/16/25 16:36 Pulse Rate 95 11/16/25 21:00 Respiratory Rate 16 11/16/25 21:00 Blood Pressure 124/90 11/16/25 21:00 Pulse Oximetry 97 11/16/25 21:00 Oxygen Delivery Room Air 11/16/25 16:36 <JESUS ALBERTO Desai - Last Filed: 11/16/25 21:10> Procedures Laceration Laceration 1: Date: 11/16/25 <JESUS ALBERTO Desai - Last Filed: 11/16/25 21:10> Time: 19:41 <JESUS ALBERTO Desai - Last Filed: 11/16/25 21:10> Site: other (L middle finger) <JESUS ALBERTO Desai - Last Filed: 11/16/25 21:10> Side (If applicable): left <JESUS ALBERTO Desai - Last Filed: 11/16/25 21:10> Size (cm): 4 <JESUS ALBERTO Desai - Last Filed: 11/16/25 21:10> Description: linear <JESUS ALBERTO Desai - Last Filed: 11/16/25 21:10> Depth: simple, single layer <JESUS ALBERTO Desai - Last Filed: 11/16/25 21:10> Local Anesthetic: lidocaine 1% <JESUS ALBERTO Desai - Last Filed: 11/16/25 21:10> Amount of anesthesia used (mL): 5 <JESUS ALBERTO Desai Last Filed: 11/16/25 21:10> Pre-repair: wound explored, irrigated extensively and minor debridement <JESUS ALBERTO Desai - Last Filed: 11/16/25 21:10> ====== Skin Level ======: Skin layer closed with: nylon <JESUS ALBERTO Desai Last Filed: 11/16/25 21:10> Size (cm): 5-0 <JESUS ALBERTO Desai Last Filed: 11/16/25 21:10> Number of sutures: 7 <JESUS ALBERTO Desai Last Filed: 11/16/25 21:10> Technique: simple, interrupted <JESUS ALBERTO Desai Last Filed: 11/16/25 21:10> ====== Subcutaneous Layer ======: ====== Muscle Layer ======: ====== Tendon Layer ======: Laceration 2: Date: 11/16/25 <JESUS ALBERTO Desai Last Filed: 11/16/25 21:10> Time: 19:42 <JESUS ALBERTO Desai Last Filed: 11/16/25 21:10> Site: other (L ring finger) <JESUS ALBERTO Desai Last Filed: 11/16/25 21:10> Side (If applicable): left <JESUS ALBERTO Desai Last Filed: 11/16/25 21:10> Size (cm): 4 <JESUS ALBERTO Desai Last Filed: 11/16/25 21:10> Description: irregular <JESUS ALBERTO Desai Last Filed: 11/16/25 21:10> Depth: simple, single layer <JESUS ALBERTO Desai Last Filed: 11/16/25 21:10> Local Anesthetic: lidocaine 1% <JESUS ALBERTO Desai - Last Filed: 11/16/25 21:10> Amount of anesthesia used (mL): 5 <JESUS ALBERTO Desai Last Filed: 11/16/25 21:10> Pre-repair: wound explored and irrigated extensively <JESUS ALBERTO Desai - Last Filed: 11/16/25 21:10> ====== Skin Level ======: Skin layer closed with: nylon <JESUS ALBERTO Desai - Last Filed: 11/16/25 21:10> Size (cm): 5-0 <JESUS ALBERTO Desai Last Filed: 11/16/25 21:10> Number of sutures: 10 <JESUS ALBERTO Desai - Last Filed: 11/16/25 21:10> Technique: simple, interrupted <JESUS ALBERTO Desai - Last Filed: 11/16/25 21:10> ====== Subcutaneous Layer ======: ====== Muscle Layer ======: ====== Tendon Layer ======: [facility] Narrative Medical decision making narrative: 65-year-old male present to the emergency department for evaluation for fall secondary to alcohol intoxication. Patient did injure his left hand. Patient did injure his left elbow. X-rays of hand and elbow were negative for acute fracture. Patient does have a chronic deformity of his 5th finger on his left hand. Laceration was repaired as described in the procedure note. Head neck CT were negative for acute intracranial abnormality. Patient was treated with antibiotics in the emergency department for the significant laceration to the left hand. Patient will be provided outpatient follow-up with Plastic surgery. <Larry Chun MD - Last Filed: 11/17/25 18:11> Differential Diagnosis Differential Diagnosis: Hand fracture, finger dislocation, subdural hematoma, subarachnoid hemorrhage, cervical spine fracture <Larry Chun MD - Last Filed: 11/17/25 18:11> Lab Data [facility] Lab Attestation statement: I personally reviewed the patient's lab results. <Larry Chun MD - Last Filed: 11/17/25 18:11> Result diagrams: 11/16/25 17:20 11/16/25 17:20 <Larry Chun MD - Last Filed: 11/17/25 18:11> Labs: Lab Results 11/16/25 Range/Units 17:20 WBC 5.8 (4.5-10.0) K/mm3 RBC 3.98 L (4.6-6.20) M/mm3 Hgb 13.3 L (14.0-18.0) g/dL Hct 40.4 L (42.0-52.0) % MCV 101.5 H (80-100) fl MCH 33.4 (26-34) pg MCHC 32.9 (32-36) g/dl RDW 15.9 H (11.5-14.5) % Plt Count 108 L (150-375) k/mm3 MPV 9.2 (7.4-10.4) fl Immature Gran % (Auto) 0.5 (0-0.5) % Neut % (Auto) 57.1 (45.5-73.1) % Lymph % (Auto) 26.0 (18.3-44.2) % [place] % (Auto) 14.4 H (2.6-8.5) % Eos % (Auto) 1.0 (0-4.4) % Baso % (Auto) 1.0 (0.2-1.2) % Lymph # (Auto) 1.52 (0.9-3.2) K/mm3 [place] # (Auto) 0.8 H (0.1-0.6) K/mm3 Eos # (Auto) 0.1 (0-0.3) K/mm3 Baso # (Auto) 0.1 (0.0-0.1) K/mm3 Abs Immat Gran (auto) 0.03 (0.00-0.031) K/mm3 Absolute Neuts (auto) 3.3 (1.3-6.7) K/mm3 Absolute Nucleated RBC 0.000 (0.0-0.012) K/mm3 Nucleated RBC % 0.0 (0.0-0.2) % PT 14.2 (11.1-14.7) Seconds INR 1.1 APTT 27.8 (22.3-36.8) Seconds Sodium 143 (137-145) mmol/L Potassium 3.7 (3.4-5.0) mmol/L Chloride 101 (98-107) mmol/L Carbon Dioxide 29 (22-30) mmol/L Anion Gap 13 H (4-12) mmol/L BUN 9 (9-20) mg/dL Creatinine 0.88 (0.7-1.3) mg/dL Estim Creat Clear Calc 81 ml/min Estimated GFR > 60 (59 - ) Glucose 102 (65-110) mg/dL Calcium 9.0 (8.4-10.2) mg/dL Total Bilirubin 0.7 (0.2-1.3) mg/dL AST 164 H (17-59) U/L ALT 35 (6-50) U/L Alkaline Phosphatase 77 (38-126) U/L Total Protein 7.5 (6.3-8.2) g/dL Albumin 4.2 (3.5-5.1) g/dL Ethyl Alcohol 284 (<10) mg/dL <Larry Chun MD - Last Filed: 11/17/25 18:11> Lab Results 11/16/25 Range/Units 17:20 WBC 5.8 (4.5-10.0) K/mm3 RBC 3.98 L (4.6-6.20) M/mm3 Hgb 13.3 L (14.0-18.0) g/dL Hct 40.4 L (42.0-52.0) % MCV 101.5 H (80-100) fl MCH 33.4 (26-34) pg MCHC 32.9 (32-36) g/dl RDW 15.9 H (11.5-14.5) % Plt Count 108 L (150-375) k/mm3 MPV 9.2 (7.4-10.4) fl Immature Gran % (Auto) 0.5 (0-0.5) % Neut % (Auto) 57.1 (45.5-73.1) % Lymph % (Auto) 26.0 (18.3-44.2) % Berg[place] % (Auto) 14.4 H (2.6-8.5) % Eos % (Auto) 1.0 (0-4.4) % Baso % (Auto) 1.0 (0.2-1.2) % Lymph # (Auto) 1.52 (0.9-3.2) K/mm3 [place] # (Auto) 0.8 H (0.1-0.6) K/mm3 Eos # (Auto) 0.1 (0-0.3) K/mm3 Baso # (Auto) 0.1 (0.0-0.1) K/mm3 Abs Immat Gran (auto) 0.03 (0.00-0.031) K/mm3 Absolute Neuts (auto) 3.3 (1.3-6.7) K/mm3 Absolute Nucleated RBC 0.000 (0.0-0.012) K/mm3 Nucleated RBC % 0.0 (0.0-0.2) % PT 14.2 (11.1-14.7) Seconds INR 1.1 APTT 27.8 (22.3-36.8) Seconds Sodium 143 (137-145) mmol/L Potassium 3.7 (3.4-5.0) mmol/L Chloride 101 (98-107) mmol/L Carbon Dioxide 29 (22-30) mmol/L Anion Gap 13 H (4-12) mmol/L BUN 9 (9-20) mg/dL Creatinine 0.88 (0.7-1.3) mg/dL Estim Creat Clear Calc 81 ml/min Estimated GFR > 60 (59 - ) Glucose 102 (65-110) mg/dL Calcium 9.0 (8.4-10.2) mg/dL Total Bilirubin 0.7 (0.2-1.3) mg/dL AST 164 H (17-59) U/L ALT 35 (6-50) U/L Alkaline Phosphatase 77 (38-126) U/L Total Protein 7.5 (6.3-8.2) g/dL Albumin 4.2 (3.5-5.1) g/dL Ethyl Alcohol 284 (<10) mg/dL <JESUS ALBERTO Desai - Last Filed: 11/16/25 21:10> Imaging Data Radiologist's impression: ITS Impressions Head CT 11/16/25 17:02 IMPRESSION: 1. 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 2. Multifocal chronic encephalomalacia in a distribution typical of traumatic brain injury. 3. Extensive nonspecific cerebral white matter disease, which likely represents chronic small vessel ischemic disease. Cervical Spine CT 11/16/25 17:04 IMPRESSION: 1. No acute abnormality of the cervical spine. Elbow X-Ray 11/16/25 17:21 IMPRESSION: 1: NO ACUTE BONE OR JOINT ABNORMALITY IDENTIFIED. Hand X-Ray 11/16/25 17:22 Impression: 1: Ventral subluxation left third digit at the MCP joint with fixed flexion at the PIP joint. No fracture identified. <Larry Chun MD - Last Filed: 11/17/25 18:11> ITS Impressions Head CT 11/16/25 17:02 IMPRESSION: 1. 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 2. Multifocal chronic encephalomalacia in a distribution typical of traumatic brain injury. 3. Extensive nonspecific cerebral white matter disease, which likely represents chronic small vessel ischemic disease. Cervical Spine CT 11/16/25 17:04 IMPRESSION: 1. No acute abnormality of the cervical spine. Elbow X-Ray 11/16/25 17:21 IMPRESSION: 1: NO ACUTE BONE OR JOINT ABNORMALITY IDENTIFIED. Hand X-Ray 11/16/25 17:22 Impression: 1: Ventral subluxation left third digit at the MCP joint with fixed flexion at the PIP joint. No fracture identified. <JESUS ALBERTO Desai - Last Filed: 11/16/25 21:10> Discharge Plan Discharge Clinical Impression: Contusion of elbow, Finger laceration, Head injury <Larry Chun MD - Last Filed: 11/17/25 18:11> Patient Disposition: Home <Larry Chun MD - Last Filed: 11/17/25 18:11> Condition: Stable <Larry Chun MD - Last Filed: 11/17/25 18:11> Instructions: Antibiotic Form, Laceration (DC), Head Injury (ED) <Larry Chun MD - Last Filed: 11/17/25 18:11> Additional Instructions: Sutures need to be removed in 7-10 days. Wear splints as directed. Have close follow-up with Plastic surgery/hand surgery. Antibiotic as directed until completed. Keep wound clean and dry for the first 24 hours. Gently wash with mild soap and water daily after 24 hours. Apply a thin layer of antibiotic ointment and cover with a sterile dressing. Change dressing daily or if it becomes wet or dirty. Avoid strenuous activity or stretching that may open the wound. Do not pick at stitches or scabs. Return to ED if you notice redness, swelling, or warmth around the wound, pus or foul smelling drainage, fever/chills, or worsening pain or bleeding that cannot be controlled with pressure. Use acetaminophen or ibuprofen for pain. <Larry Chun MD - Last Filed: 11/17/25 18:11> Patient Language: Icelandic <Larry Chun MD - Last Filed: 11/17/25 18:11> Prescriptions: New cephalexin 500 mg capsule 500 mg PO Q8H 7 Days Qty: 21 0RF No Action metoprolol tartrate 25 mg tablet 25 mg PO DAILY amlodipine [Norvasc] 5 mg Tablet 5 mg PO Q12HR Qty: 60 1RF chlordiazepoxide HCl 5 mg capsule See Rx Instructions .ROUTE .COMPLEX PRN (Reason: anxiety) Qty: 9 0RF Rx Instructions: 5 mg orally twice daily for 3 days then once daily for next 3 days losartan 50 mg tablet 50 mg PO DAILY Qty: 30 0RF aspirin 81 mg tablet,delayed release (DR/EC) 81 mg PO DAILY Qty: 30 0RF <Larry Chun MD - Last Filed: 11/17/25 18:11> Follow-up/Referrals: Nazario Bernstein MD [Physician, Plastic Surgery] UNKNOWN,DOCTOR [Primary Care Provider] <Larry Chun MD - Last Filed: 11/17/25 18:11>
[2025-11-16 17:31] LABS: Hematocrit 40.4 % (42.0-52.0); Hemoglobin 13.3 g/dL (14.0-18.0); Immature Granulocyte Percent A 0.5 % (0-0.5); Lymphocytes Absolute Auto 1.52 K/mm3 (0.9-3.2); Mean Corpuscular HGB Conc 32.9 g/dl (32-36); Mean Corpuscular Hemoglobin 33.4 pg (26-34); Mean Corpuscular Volume 101.5 fl (80-100); Nucleated Red Blood Cells Absolute Auto 0.000 K/mm3 (0.0-0.012); Nucleated Red Blood Cells Perc 0.0 % (0.0-0.2); Platelet Count Result 108 k/mm3 (150-375); Red Blood Count 3.98 M/mm3 (4.6-6.20); White Blood Count 5.8 K/mm3 (4.5-10.0)
[2025-11-16 17:39] LABS: Alanine Aminotransferase 35 U/L (6-50); Albumin Level 4.2 g/dL (3.5-5.1); Alkaline Phosphatase 77 U/L (38-126); Anion Gap 13 mmol/L (4-12); Aspartate Amino Transferase 164 U/L (17-59); Bilirubin,Total 0.7 mg/dL (0.2-1.3); Blood Urea Nitrogen 9 mg/dL (9-20); Calcium 9.0 mg/dL (8.4-10.2); Carbon Dioxide 29 mmol/L (22-30); Chloride 101 mmol/L (98-107); Estimated CRCL calculation 81 ml/min; Estimated Glomerular Filt Rate > 60; Glucose 102 mg/dL (65-110); Potassium 3.7 mmol/L (3.4-5.0); Sodium 143 mmol/L (137-145); Total Protein 7.5 g/dL (6.3-8.2)
[2025-11-16 17:46] LABS: INR 1.1; Prothrombin Time 14.2 Seconds (11.1-14.7)
[2025-11-16 17:47] LABS: Partial Thromboplastin Time 27.8 Seconds (22.3-36.8)
[2025-11-16] MEDS: LIDOCAINE 1% LOCAL INJ 10 ML VIAL 20 ML INFILTRATE (18:16)
[2025-11-16 18:43] VITALS: BP 134/96; PULSE 86; RESP 16; O2SAT 99
[2025-11-16] MEDS: CEPHALEXIN 500 MG CAPSULE PO (19:18)
[2025-11-16 19:45] VITALS: BP 128/88; PULSE 100; RESP 16; O2SAT 97
--- OUTSIDE RECORDS SUMMARY | 2025-11-16 19:57 | XMS_ITS | Clinical Summary ---
Author Organization [facility] Address [address] [place] [id number] Care Team Providers Care Medical Biller Coder Name Role Phone Hetal Hernandez NP Primary Care Provider [phone] Allergies No known active allergies Medications WALKER MISC, DME,Indications: Falls frequently,Unste jaylon gait 1 Device by Does not apply route daily. 1 Device 08/06/2024 Active Active Problems Problem Noted Date Diagnosed Date Falls frequently 08/06/2024 Weight loss 08/06/2024 Syncope, unspecified syncope type 11/27/2021 Dyslipidemia 11/27/2021 History of subarachnoid hemorrhage 11/27/2021 History of stroke 11/27/2021 History of COVID-19 11/27/2021 Essential (primary) hypertension 07/10/2021 Cerebrovascular accident (CVA), unspecified mech anism 07/10/2021 Alcoholism 07/10/2021 History of seizure 07/10/2021 Resolved Problems Problem Noted Date Diagnosed Date Resolved Date Precordial pain 11/27/2021 05/23/2022 Dizziness on standing 08/10/20212021 Fatigue, unspecified type 08/10/2021 Weakness of both legs 07/10/20212021 Elevated CPK 07/10/2021 05/23/2022 Immunizations Immunization Administration Dates Next Due Tdap (Boostrix) 08/12/2024 Family History Medical History Relation Comments Prostate Cancer Father No Known Problems Maternal Grandfather No Known Problems Maternal Grandmother Afib Mother Breast Cancer Mother Relation Status Comments Father (Age 80) Maternal Grandfather Maternal Grandmother Mother Alive Paternal Grandfather (Age 80) Paternal Grandmother (Age 89) Social History Tobacco Use Types Packs/Day Years Used Date Smoking Tobacco: Never Smokeless Tobacco: Never Tobacco Cessation:Counseling Given: No Alcohol Use Standard Drinks/Week Comments Yes 0 (1 standard drink = 0.6 oz pure alcohol) fifth of rum per day - working on cutting back AUDIT-C Answer Date Recorded Q1: How often do you have a drink containing alcohol? 4 or more times a week 08/06/2024 Q2: How many drinks containi ng alcohol do you have on a typical day when you are drinking? 3 or 4 Q3: How often do you have si x or more drinks on one occasion? Weekly 08/06/2024 PHQ-2 Answer Date Recorded PHQ-2 Score - If the patient scores above 3, please move on to questions 3-9 0 05/23/2022 Sex and Gender Information Value Date Recorded Sex Assigned at Not on file Legal Sex Male 10:33 AM CDT Gender Identity Not on file Sexual Orientation Not on file Last Filed Vital Signs Vital Sign Reading Time Taken Comments Blood Pressure 130/77 08/16/2024 3:06 PM CDT Pulse 70 08/16/2024 3:06 PM CDT Temperature 36.7 C (98 F) 08/16/2024 3:06 PM CDT Respiratory Rate 18 08/16/2024 3:06 PM CDT Oxygen Saturation 99% 08/16/2024 3:06 PM CDT Inhaled Oxygen Concentration - - Weight 63 kg (139 lb) 08/14/2024 4:06 PM CDT Height 185.4 cm (6' 1) 08/14/2024 4:06 PM CDT Body Mass Index 18.34 08/14/2024 4:06 PM CDT Plan of Treatment Health Maintenance Due Date Last Done Comments Colorectal Cancer Screening Colonoscopy (10 Years) 1961 Pneumococcal Vaccine: 50+ Ye ars (1 of 2 - PCV) 1980 Zoster Vaccines (1 of 2) 2011 Annual Physical 05/23/2023 05/23/2022 PHQ-2 (Physician [place]) 11/25/2024 COVID-19 Vaccine (1 - 2024-2 6 season) 2025 Influenza Adult (#1) 2025 DTaP, Tdap and Td Vaccines ( 2 - Td or Tdap) 08/12/2034 08/12/2024 RSV Immunization or 60+ Years (1 - 1-dose 75+ series) 2036 Hepatitis C Completed 07/11/2022 Hepatitis A Vaccines Aged Out No long er eligible based on patient's age to complete this topic Meningococcal B Vaccine Aged Out No l onger eligible based on patient's age to complete this topic Meningococcal Vaccine Aged Out No raimundo kassidy eligible based on patient's age to complete this topic RSV Immunizations Under 20 Months Aged Out No longer eligible based on patient's age to complete this topic Procedures Procedure Name Priority Date/Time Associated Diagnosis Comments HEPATITIS C ANTIBODY Routine 07/11/2022 8:38 AM CDT Need for hepatitis C screening test from Last 3 Months or Most Recently Relevant to Health Maintenance Results * HEPATITIS C AB ([facility] ONLY) (07/11/2022 8:38 AM CDT) HEPATITIS C AB NON-REACTI VE NON-REACT [id number] 07/11/2022 9:45 PM CDT [facility] Comment: ANTIBODIES TO HCV NOT DETECTED. DOES NOT EXCLUDE THE POSSIBILITY OF EXPOSURE TO HCV. 07/11/2022 8:38 AM CDT us Hetal Hernandez NP LABORATORY Final Res ult [facility] [address] [place] [address], [id number] from Last 3 Months or Most Recently Relevant to Health Maintenance Insurance MEDICAID Care Teams Medical Biller Coder Relationship Specialty Start Date End Date Hetal Hernandez NP [address] [place] [id number] PCP - General NURSE PRACTITIONER 07/07/21
--- OUTSIDE RECORDS SUMMARY | 2025-11-16 19:57 | XMS_ITS | Encounter Summary ---
Author Organization [facility] Address [address] [place] [id number] Care Team Providers Care Certified Ophthalmic Assistant Name Role Phone Hetal Hernandez NP Primary Care Provider [phone] Encounter Details Date Type Department Care Team (Late st Contact Info) Description 09/21/2021 [facility] [place] Documentation [facility], [address] [address] Abstract, Doc [facility] Social History Tobacco Use Types Packs/Day Years Used Date Smoking Tobacco: Never Smokeless Tobacco: Never Alcohol Use Standard Drinks/Week Comments Yes 0 (1 standard drink = 0.6 oz pure alcohol) fifth of rum per day - working on cutting back PHQ-2 Answer Date Recorded PHQ-2 Score - If the patient scores above 3, please move on to questions 3-9 1 07/10/2021 Sex and Gender Information Value Date Recorded Sex Assigned at Not on file Legal Sex Male 10:33 AM CDT Gender Identity Not on file Sexual Orientation Not on file COVID-19 Exposure Response Date Recorded In the last month, have you been in contact with someone who was confirmed or suspected to have Coronavirus / COVID-19? No / Unsure 09/11/2021 9:54 AM CDT documented as of this encounter Plan of Treatment Not on file documented as of this encounter Visit Diagnoses Not on filedocumented in this encounter Additional Health Concerns Infection Onset Date Last Indicated Resolved Time COVID-19 Rule Out 08/14/2024 08/14/2024 08/14/2024 7:42 PM CDT Assessment Noted Time PHQ-9 Depression Total Score: 2 07/10/20 21 2:54 PM CDT documented as of this encounter Care Teams Certified Ophthalmic Assistant Relationship Specialty Start Date End Date Hetal Hernandez NP [address] [place] [id number] PCP - General NURSE PRACTITIONER 07/07/21 documented as of this encounter
[2025-11-16 21:00] VITALS: BP 124/90; PULSE 95; RESP 16; O2SAT 97
--- NOTE | 2025-11-16 21:15 | PC.NURSE ---
spoke with -she is coming for patient
== END 2025-11-16 22:14 | disposition home or self-care (01) ==
LOC: ANHED 19:55
PROVIDERS: Emergency Provider Emergency Medicine
DX: S50.02XA Contusion of left elbow, initial encounter (principal); S61.215A Laceration without foreign body of left ring finger without damage to nail, initial encounter; S61.213A Laceration without foreign body of left middle finger without damage to nail, initial encounter; S09.90XA Unspecified injury of head, initial encounter; I10 Essential (primary) hypertension; Z86.73 Personal history of transient ischemic attack (TIA), and cerebral infarction without residual deficits; Z87.891 Personal history of nicotine dependence; Z79.82 Long term (current) use of aspirin; Z79.899 Other long term (current) drug therapy; R90.82 White matter disease, unspecified; G93.89 Other specified disorders of brain; W01.198A Fall on same level from slipping, tripping and stumbling with subsequent striking against other object, initial encounter
CPT/HCPCS: 12004; 36415; 70450; 72125; 73080; 73130; 80053; 82077; 85025; 85610; 85730; 99284; A9270; J2003